=== PATIENT | male | born 1960 | race Caucasian/White ===

== ENCOUNTER → 2019-04-06 | Outpatient (CLI) | payer OTHER | LOC: OD 07:08 | PROVIDERS: ATTEND Otolaryngology | DX: J30.9 Allergic rhinitis, unspecified (principal) | CPT/HCPCS: 36415; 82785; 86003 ==

== ENCOUNTER → 2019-07-28 | Outpatient (CLI) | payer OTHER | LOC: OD 10:48 → EDSTATUS 08-01 07:30 | PROVIDERS: ATTEND Otolaryngology | DX: Z03.818 Encounter for observation for suspected exposure to other biological agents ruled out (principal) | CPT/HCPCS: 87635; C9803 ==

== ENCOUNTER 2019-08-15 08:38 | Day surgery (SDC) | payer OTHER ==
[~2019-08-15 08:38] MED LIST: DEXAMETHASONE SOD PHOS INJ 10 MG/1 ML VIAL ONE; FENTANYL CITRATE INJ/PF 100 MCG/2 ML AMPUL ONE; GLYCOPYRROLATE INJ 0.4 MG/2 ML VIAL ONE; LIDOCAINE 2% INJ-PF (100 MG/5 ML) SYRINGE ONE; MIDAZOLAM 2 MG/2 ML INJ ONE; ONDANSETRON HCL INJ/PF 4 MG/2 ML SDV ONE; PROPOFOL INJ 200 MG/20 ML VIAL IV ONE; SUCCINYLCHOLINE CHLORIDE INJ 200 MG/10 ML VIAL ONE
[2019-08-15] MEDS ORDERED: LIDOCAINE 2%/EPINEPHRINE INJ 1.7 ML CARTRIDGE ONE ×2 (09:57→11:21)
[2019-08-15] MEDS ORDERED: OXYMETAZOLINE HCL 0.05% NASAL SPRAY 15 ML BOTTLE ONE (09:57)
[2019-08-15] MEDS ORDERED: COCAINE HCL 4% TOPICAL SOLN 4 ML ONE (09:58)
[2019-08-15] MEDS ORDERED: PHENYLEPHRINE HCL INJ/PF 10 MG/1 ML SDV ONE (11:19)
--- NOTE | 2019-08-15 11:28 | Operative Report ---
Operative Report-[facility] Operative Report: Date: 15 August 2019 History: 59-year-old male with history of bilateral eustachian tube dysfunction. Presents today for a BMT T, bilateral eustachian tube balloon plasty and possible inferior turbinate reduction. Inform consent was obtained for the patient Preoperative Diagnosis: 1. Eustachian tube dysfunction, bilateral 2. Deviated nasal septum, left side 3. Inferior turbinate hypertrophy, bilateral Postoperative diagnosis: Same as above Procedure: 1. Eustachian tube balloon dilation/reconstruction nasopharynx [CPT = 73946], bilateral 2. Myringotomy with insertion tympanostomy tube, bilateral 3. Rigid nasal endoscopy, bilateral 4. Inferior turbinate reduction, bilateral Surgeon: Murphy Gonzales MD, FACS, FCCP Anesthesia: GETA Description of procedure: After receiving informed consent from the patient, the patient was transported to the operating room and placed supine on the operating room table. After successful induction and intubation by anesthesia cottonoids saturated with 4% cocaine were placed into each nasal cavity for approximately 5 minutes. They were then removed. Nasal septum and inferior turbinate were injected with 2% Xylocaine with 100,000 epinephrine. The cottonoids were placed back into the nasal cavity. The operating microscope was brought into the field and under binocular microscopy a properly sized ear speculum was placed into the right ear. The tympanic membrane was visualized and a radial incision was made in the anterior inferior quadrant. Middle ear space was dry. A Paparella PE tube was then placed into this incision and otic drops placed into the external auditory canal. A similar procedure was performed on the left side, with similar findings. Attention was then directed to the eustachian tube balloon dilation portion of the procedure. The cottonoids were removed from the nasal cavity. A [place] elevator was used to medialized and lateralize the inferior turbinate. A rigid 30 degree nasal endoscope along with the AREA eustachian tube balloon dilation system was inserted in the right nasal cavity. The torus tubarius was visualized. Under endoscopic guidance the balloon was inserted into the right eustachian tube lumen. The balloon was then insufflated to 12 atmospheric pressure for 2 minutes. The balloon was then let down and removed from the eustachian tube lumen. The endoscope and balloon system was then removed from the nasal cavity. Attention was then directed to the left side, which revealed a nasal septal deviation which consisted of an inferiorly based septal spur extending to the turbinate. A [place] elevator was used to medialize and then lateralized inferior turbinate. It was difficult to place both the endoscope and the eustachian tube balloon system into the left nasal cavity simultaneously so, the 30 degree endoscope was placed into the right nasal cavity and down towards the nasopharynx where the left eustachian tube orifice was clearly visualized. The eustachian tube balloon dilation system was placed into the left nasal cavity where the left eustachian tube lumen was cannulated and the balloon inflated, similar to the right side. The balloon was deflated, removed from the eustachian tube lumen and then removed from the left nasal cavity. The endoscope visualized the freshly dilated left eustachian tube lumen. The endoscope was then removed from the right side. The patient tolerated the procedure well without any complications. Patient was then given back to anesthesia who successfully extubated the patient without any complications. Estimated blood loss: Minimal Fluids: 500 mL The patient was transferred to the postanesthesia care unit in stable condition with spontaneous respirations.
== END 2019-08-15 12:15 | disposition home or self-care (01) ==
LOC: SC 08:38
PROVIDERS: ATTEND Otolaryngology
DX: J34.2 Deviated nasal septum (principal); H69.83 Other specified disorders of Eustachian tube, bilateral; H65.22 Chronic serous otitis media, left ear; J30.9 Allergic rhinitis, unspecified; Z03.818 Encounter for observation for suspected exposure to other biological agents ruled out
CPT/HCPCS: 42950; 49436; 31231; J2250; J3490 ×3; J3010; J2001; J2370; J0330; J2405; J2704; J1100; 160